=== PATIENT | female | born 1985 | race Caucasian/White ===

== ENCOUNTER 2018-12-04 11:05 | Day surgery (SDC) | payer MEDICAID ==
[2018-12-03 16:37] VITALS: BMI 22.5
[2018-12-04] VITALS (10 sets, daily range): BP systolic 97–113; BP diastolic 55–68; PULSE 44–74; RESP 15–18; Ht 154.9 cm; Wt 54.3 kg
[~2018-12-04] VITALS: Ht 154.9 cm; Wt 54.3 kg
[~2018-12-04 11:05] MED LIST: LACTATED RINGER'S 1,000 ML IV ONE
[2018-12-04] MEDS ORDERED: LACTATED RINGER'S 1,000 ML IV SCH (12:30)
--- NOTE | 2018-12-04 14:27 | PREAC ---
Date/Time of Note Date/Time of Note DATE: 12/04/18 TIME: 14:27 Anesthesia Eval and Record Evaluation Time Pre-Procedure Interview DATE: 12/04/18 TIME: 14:27 Age 33 Sex female NPO: 8 hrs Preoperative diagnosis multiparity Planned procedure LAP BTL Past Medical History Past Medical History: None Surgery & Anesthesia Issues No known issue Meds Anticoagulation: No Beta Moy within 24 hr: No Reason Beta Moy not given: Pt. not on B-Moy No Active Prescriptions or Reported Meds Current Medications Lactated Ringer's 1,000 ml @ 0 mls/hr Q0M IV Last administered on 12/04/18at 13:24; Admin Dose 0 MLS/HR; Start 12/04/18 at 12:30 Meds reviewed: Yes Allergies Coded Allergies: No Known Allergy (Unverified , 12/04/18) Allergies Reviewed: Yes Labs/Studies Labs Reviewed: Reviewed by anesthesiologist Result Diagram: 12/04/18 1145 Laboratory Tests 12/04/18 11:45 Blood Bank Test 12/04/18 11:45 Antibody Screen NEGATIVE Blood Type O POSITIVE test: Negative Pre-procedure Exam Last vitals Vital Signs Date Temp Pulse Resp B/P (MAP) Pulse Ox O2 O2 Flow FiO2 Time Delivery Rate 12/04/18 97.5 60 18 97/56 (70) 100 Room Air 12:09 Airway: Adequate mouth opening, Adequate thyromental dist Mallampati: Mallampati II Teeth: Normal Lung: Normal Heart: Normal ASA Physical Status ASA physical status: 1 Emergency: None Planned Anesthetic General/MAC: ETT Planned Pain Management Parenteral pain med Pre-operative Attestations Prior to commencing anesthesia and surgery, the patient was re-evaluated, there was verification of: *The patient's identity *The results of appropriate recent lab work and preoperative vital signs *The above evaluation not changing prior to induction *Anesthetic plan, risk benefits, alternative and complications discussed with patient/family; questions answered; patient/family understands, accepts and wishes to proceed. Guerrero Payne M.D. Dec 04, 2018 14:27
[2018-12-04] MEDS ORDERED: PROPOFOL 20 ML ONE (14:29)
[2018-12-04] MEDS ORDERED: ROCURONIUM 50 MG INJ ONE (14:29)
[2018-12-04] MEDS ORDERED: GLYCOPYRROLATE 0.4 MG INJ ONE (14:29)
[2018-12-04] MEDS ORDERED: NEOSTIGMINE 3 MG/3 ML SYRINGE ONE (14:29)
[2018-12-04] MEDS ORDERED: CEFAZOLIN 1 GM INJ ONE (14:29)
[2018-12-04] MEDS ORDERED: DIPHENHYDRAMINE 50 MG INJ IV PRN (14:30)
[2018-12-04] MEDS ORDERED: MIDAZOLAM 1 MG/ML 2 ML INJ ONE (14:30)
[2018-12-04] MEDS ORDERED: hydrALAzine 20 MG INJ IV PRN (14:30)
[2018-12-04] MEDS ORDERED: ONDANSETRON 4 MG INJ IV PRN (14:30)
[2018-12-04] MEDS ORDERED: ALBUTEROL 0.083% (NEB) 2.5 MG/3 ML AMP HHN PRN (14:30)
[2018-12-04] MEDS ORDERED: HYDROmorphONE 1 MG/5 ML IV SYRINGE IV PRN ×3 (14:30)
[2018-12-04] MEDS ORDERED: ONDANSETRON 4 MG INJ ONE (14:30)
[2018-12-04] MEDS ORDERED: IPRATROPIUM (NEB) 0.5 MG/2.5 ML AMP HHN PRN (14:30)
[2018-12-04] MEDS ORDERED: MIDAZOLAM 1 MG/ML 2 ML INJ IV PRN (14:30)
[2018-12-04] MEDS ORDERED: ROPIVACAINE 0.5 % 30 ML VIAL ONE (14:30)
[2018-12-04] MEDS ORDERED: LABETALOL HCL 20MG INJ IV PRN (14:30)
[2018-12-04] MEDS ORDERED: OXYCODONE/ACETAMINOPHEN (5/325) TAB PO PRN ×2 (14:30)
[2018-12-04] MEDS ORDERED: EPHEDrine 25 MG/5 ML SYG IV PRN (14:30)
[2018-12-04] MEDS ORDERED: DEXAMETHASONE 4 MG/ML 5 ML INJ ONE (14:30)
[2018-12-04] MEDS ORDERED: MEPERIDINE 25 MG INJ IV PRN (14:30)
[2018-12-04] MEDS ORDERED: FENTAnyl 50 MCG/ML VIAL ONE (14:30)
[2018-12-04] MEDS ORDERED: FENTAnyl 50 MCG/ML VIAL IV PRN ×3 (14:30)
[2018-12-04] MEDS ORDERED: TRIMETHOBENZAMIDE 100 MG/ML VIAL IM PRN (14:30)
--- NOTE | 2018-12-04 15:44 | OPPN ---
Date/Time of Note Date/Time of Note DATE: 12/04/18 TIME: 15:41 Operative Report Preoperative Diagnosis Multipara desires sterilization Postoperative Diagnosis same Operation/Procedure Performed Laparoscopic BTL Right Tubal cystectomy Surgeon see signature line hospital clinic assistant none Anesthesia: general Estimated blood loss: 0 - 10 ml's Transfusion Required none Specimen Right paratubal cyst Grafts/Implants none Complications none ZAY VICTOR M.D. Dec 04, 2018 15:44
--- NOTE | 2018-12-04 15:51 | PAC ---
Date/Time of Note Date/Time of Note DATE: 12/04/18 TIME: 15:51 Post-Anesthesia Notes Post-Anesthesia Note Last documented vital signs Vital Signs Date Temp Pulse Resp B/P (MAP) Pulse Ox O2 O2 Flow FiO2 Time Delivery Rate 12/04/18 98.7 15:49 12/04/18 60 18 97/56 (70) 100 Room Air 12:09 Activity: WNL Respiratory function: WNL Cardiovascular function: WNL Mental status: Baseline Pain reasonably controlled: Yes Hydration appropriate: Yes Nausea/Vomiting absent: Yes ALEXANDRU SCHULTE Dec 04, 2018 15:51
--- NOTE | 2018-12-05 04:37 | HP ---
DATE OF ADMISSION: 12/04/2018 HISTORY OF PRESENT ILLNESS: A 33-year-old old with multiparity, desires sterilization. History of 2 previous C-sections. PAST MEDICAL HISTORY: Denies. PAST SURGICAL HISTORY: History of 2 previous sections. ALLERGIES: NKDA. PHYSICAL EXAMINATION: VITAL SIGNS: Stable. GENERAL: Normal. ABDOMEN: Not tender, not distended. GENITAL: Deferred. ASSESSMENT AND PLAN: A 33-year-old scheduled for voluntary and bilateral tubal ligation, possi ble laparotomy discussed with the patient. Risks and benefits and alternatives discussed. The patie nt signed the consent and was taken to the operating room. Dictated By: ZAY GRANT/MICHAEL Conf#: [id number] DID#: [id number]
--- NOTE | 2018-12-05 07:11 | OPR ---
DATE OF OPERATION: 12/04/2018 PREOPERATIVE DIAGNOSIS: Multiparity, desires sterilization. POSTOPERATIVE DIAGNOSES: Multiparity, desires sterilization, and a right paratubal cyst. OPERATION PERFORMED: Laparoscopic bilateral tubal ligation, lysis of adhesions, removal of paratubal cyst. ESTIMATED BLOOD LOSS: Minimal. COMPLICATIONS: None. DESCRIPTION OF PROCEDURE: The patient was taken to the operating room where general anesthesia was f ound to be adequate. The patient was placed in dorsal lithotomy position after prep and drape. A 1 cm incision was made above the umbilicus. First trocar was inserted under direct visualization of th e camera, and then a second and third trocar was inserted over the left side of the patient 8 to 10 c m from the first one. Intraabdominal cavity was filled up using 4 liters of CO2. There was an oment al adhesion to the abdominal wall. By using a gyrus applicator, it was released. Then both tubes we re identified, midportion of both tubes were cauterized. Then a 2 x 2 cm paratubal cyst was noted on the right side and it was removed. Endobag was inserted through the left side incision and the ____ and removed. Hemostasis achieved. Gas was removed. The fascia was closed in the left side incisio n. The skin was closed using 3-0 Monocryl sutures. ____ incision Dermabond was placed over top of t he incision. Patient tolerated the procedure well and was transferred to recovery in stable conditio n. There was no complication regarding this surgery. Dictated By: ZAY GRANT/MICHAEL Conf#: [id number] DID#: [id number]
== END 2018-12-04 18:00 | disposition home or self-care (01) ==
LOC: SDS 11:05
PROVIDERS: ATTEND Obstetrics & Gynecology
DX: Z30.2 Encounter for sterilization (principal); N83.8 Other noninflammatory disorders of ovary, fallopian tube and broad ligament
CPT/HCPCS: 58670; 85025; 86850; 86900; 86901; 88305; J0690; J1100; J2250; J2405; J2710; J2795; J3010; Z7512; Z7610